=== PATIENT | female | born 1970 | race Caucasian/White ===

== ENCOUNTER 2018-04-01 07:09 | Emergency (ER) | payer SELFPAY ==
[~2018-04-01] VITALS: Ht 162.6 cm; Wt 73.0 kg
[2018-04-01 09:59] VITALS: BP 118/86
== END 2018-04-01 10:17 | disposition home or self-care (01) ==
LOC: ER 08:20
DX: K11.5 Sialolithiasis (principal); F17.200 Nicotine dependence, unspecified, uncomplicated
CPT/HCPCS: 99282